=== PATIENT | male | born 1940 | race Native Hawaiian/Other Pacific Islander ===

== ENCOUNTER 2021-05-11 23:03 | Emergency (ER) | payer OTHER ==
[~2021-05-11] VITALS: Ht 167.6 cm; Wt 67.6 kg
[2021-05-11 23:23] LABS: PLATELET COUNT 300 K/uL (142-355)
[2021-05-11 23:38] LABS: POTASSIUM 4.3 mmol/L (3.6-5.2)
[2021-05-11 23:50] VITALS: TEMP 98.9
[2021-05-12] MEDS ORDERED: DONEPEZIL HYDRO10 MG PO (10:54)
[2021-05-12] MEDS ORDERED: BISACODYL5 M1 PO (10:55)
[2021-05-12] MEDS ORDERED: CLON0.5T36 PO (10:57)
[2021-05-12] MEDS ORDERED: B-12500 MCG PO (10:58)
[2021-05-12] MEDS ORDERED: FAMOTIDINE40 MG PO (10:59)
[2021-05-12] MEDS ORDERED: MEDROXYPROG150 MG/ML IM (11:01)
[2021-05-12] MEDS ORDERED: MIRALAX17 GM PO (11:02)
[2021-05-12] MEDS ORDERED: NAMENDA10 MG PO (11:12)
[2021-05-12] MEDS ORDERED: QUETIAPINE100 MG PO (11:14)
[2021-05-12] MEDS ORDERED: VALSARTAN40 MG PO (11:15)
[2021-05-12] MEDS ORDERED: TRAMADOL HYDROC50 MG PO (11:17)
[2021-05-15] MEDS ORDERED: CLON0.5T36 PO (13:54)
== END 2021-05-11 23:52 | disposition still patient (30) ==
LOC: ED 23:03
PROVIDERS: Hospitalist
DX: F03.91 Unspecified dementia, unspecified severity, with behavioral disturbance (principal); Z11.52 Encounter for screening for COVID-19; Z04.6 Encounter for general psychiatric examination, requested by authority
CPT/HCPCS: 36415; 80053; 85027; 87635; 93005; 99283; U0003